=== PATIENT | male | born 1970 | race Hispanic/Latino ===

== ENCOUNTER → 2019-06-15 | Outpatient (CLI) | payer BC ==
[~2019-06-15] MED LIST: OMEPRAZOLE40 MG PO
--- NOTE | 2019-06-15 13:23 | Diagnostic Imaging Report ---
Testicular ultrasound, 06/15/2019. History: Bronchitis. Comparison: None available. Discussion: Evaluation of the scrotum was performed in the transverse and longitudinal planes. Color Doppler and spectral wave form analysis was performed bilaterally. The testes are normal in size and echogenicity bilaterally, measuring 3.9 x 2.1 x 3.6 cm on the right and 4.1 x 2.2 x 3.2 cm on the left. There is no evidence of a mass. Normal and symmetrical flow is present within both testes. There is no evidence of hydrocele. Oval anechoic structures are present within bilateral epididymis, measuring 0.5 cm on the right and 0.7 cm on the left.. IMPRESSION: Bilateral epididymal cysts versus spermatoceles. Otherwise unremarkable exam. No testicular abnormality. Signed by: Moise Murray on 06/15/2019 1:20 PM
== END ==
LOC: US 10:00
PROVIDERS: ATTEND Family Medicine
DX: N45.2 Orchitis (principal)
CPT/HCPCS: 76870; 93976

== ENCOUNTER → 2022-07-10 | Outpatient (CLI) | payer BC | LOC: US 09:27 | PROVIDERS: ATTEND Internal Medicine Gastroenterology | DX: R10.11 Right upper quadrant pain (principal) | CPT/HCPCS: 76700 ==

== ENCOUNTER 2022-09-29 12:42 | Emergency (ER) | payer BC ==
[~2022-09-29] VITALS: Ht 172.7 cm; Wt 112.5 kg
[2022-09-29] MEDS ORDERED: NAPROXEN250 MG PO (13:12)
== END 2022-09-29 13:20 | disposition home or self-care (01) ==
LOC: ER 12:58
DX: S39.011A Strain of muscle, fascia and tendon of abdomen, initial encounter (principal); S30.811A Abrasion of abdominal wall, initial encounter; I10 Essential (primary) hypertension; E11.9 Type 2 diabetes mellitus without complications; X58.XXXA Exposure to other specified factors, initial encounter
CPT/HCPCS: 99283

== ENCOUNTER → 2025-07-21 | Day surgery (SDC) | payer BC ==
[~2025-07-21] MED LIST changes: +ACTOS15 MG PO; +ATORVASTATIN CA20 MG PO; +FENTANYL CITRATE/PF 100MCG/2 ML INJ ONE; +GLIPIZIDE ER10 MG PO; +IRON325 M1 PO; +LACTATED RINGER'S 1,000 ML ONE; +LIDOCAINE HCL 2% LOCAL INJ 5 ML SDV VIAL INJ ONE; +METOCLOPRAMIDE HCL 10 MG/2ML VIAL ONE; +METOPROLOL SUCC50 MG PO; +NAPROXEN250 MG PO; +OLMESARTAN-HCT1 EACH PO; +PANTOPRAZOLE SO40 MG PO; +PROPOFOL IV EMULSION 10 MG/ML 20 ML VIAL ONE; +SUCRALFATE1 GM PO; +VITAMIN C1000 MG PO; +VITAMIN D310 MCG PO; +XIGDUO XR 5 MG1 EAC1 PO
[2025-07-21 07:34] VITALS: BP 115/80; PULSE 85; RESP 15; TEMP 98.7; O2SAT 97
== END | disposition home or self-care (01) ==
LOC: OR 05:16
PROVIDERS: ATTEND Internal Medicine Gastroenterology
DX: K21.9 Gastro-esophageal reflux disease without esophagitis (principal); K31.7 Polyp of stomach and duodenum; K29.50 Unspecified chronic gastritis without bleeding; K31.89 Other diseases of stomach and duodenum; K20.90 Esophagitis, unspecified without bleeding; E11.9 Type 2 diabetes mellitus without complications; I10 Essential (primary) hypertension; Z71.89 Other specified counseling; E66.01 Morbid (severe) obesity due to excess calories; E78.5 Hyperlipidemia, unspecified; R05.3 Chronic cough; Z01.810 Encounter for preprocedural cardiovascular examination; Z79.84 Long term (current) use of oral hypoglycemic drugs; Z79.899 Other long term (current) drug therapy; Z68.35 Body mass index [BMI] 35.0-35.9, adult; Z71.3 Dietary counseling and surveillance; Z86.16 Personal history of COVID-19; Z53.20 Procedure and treatment not carried out because of patient's decision for unspecified reasons
CPT/HCPCS: 36415; 43239; 82948; 93005; J2003; J2470; J2765